=== PATIENT | female | born 1955 | race American Indian/Alaskan Native ===

== ENCOUNTER 2019-08-24 11:34 | Emergency (ER) | payer MEDICARE, OTHER ==
--- NOTE | 2019-08-24 11:45 | Event Note ---
ED Screening Note Date of service: 08/24/19 Time: 11:43 ED Screening Note: 64 y o female with PMH of Stroke last week presents with right sided head pain with with right sided weakness This initial assessment/diagnostic orders/clinical plan/treatment(s) is/are subject to change based on patients health status, clinical progression and re- assessment by fellow clinical providers in the ED. Further treatment and workup at subsequent clinical providers discretion. Patient/guardian urged not to elope from the ED as their condition may be serious if not clinically assessed and managed. Initial orders include: Taylor stroke protocol initiated
[2019-08-24] MEDS ORDERED: MORPHINE 4 MG/1 ML INJ IV ONE (12:10)
[2019-08-24] MEDS ORDERED: ACETAMINOPHEN 500 MG TAB PO ONE (12:11)
[2019-08-24] MEDS ORDERED: ONDANSETRON 4 MG/2 ML INJ IV ONE (12:11)
--- NOTE | 2019-08-24 12:18 | Cat Scan Report ---
CT BRAIN: 08/24/2019 at 1152 hours ET INDICATION / CLINICAL INFORMATION: MAIN: CODE STROKE CALL [phone] . COMPARISON: None available. FINDINGS: BRAIN/INTRACRANIAL STRUCTURES: Unenhanced CT images of the brain were obtained. There is evidence of chronic right middle cerebral artery distribution cortical ischemic change. Piano Maker karely subcortical ischemic change are present in the left frontal periventricular white matter. Chronic white matter hypoattenuation is present. There is no CT evidence of acute large vessel territory ischemic injury, hemorrhage, or mass. There a re no abnormal extra-axial fluid collections. Incidental note is made of prominent basal ganglia calcifications, generally considered to be of no c linical significance. Atherosclerotic vascular calcifications are present in the distal internal carotid arteries and verte bral arteries. EXTRACRANIAL STRUCTURES: Unremarkable. IMPRESSION: No acute abnormality. Old right MCA territory infarct. These findings were discussed with the emergency department physician at 1212 hours ET, All CT scans at this location are performed using dose reduction to ALARA by means of automated expos ure control. Signer Name: Scooter Youngblood MD Signed: 08/24/2019 12:14 PM Workstation Name: [id number]
[2019-08-24] MEDS ORDERED: ASPIRIN 81 MG TAB CHEW PO ONE (12:32)
--- NOTE | 2019-08-24 12:32 | Emergency Department Report ---
ED Neuro Deficit HPI - General Chief Complaint: Neuro Symptoms/Deficit Stated Complaint: HEADACHE Time Seen by Provider: 08/24/19 12:10 Source: patient Mode of arrival: Wheelchair Limitations: No Limitations - History of Present Illness Initial Comments: [facility] TeleStroke Metrics: LKW: 0600 Door Time: 1134 [facility] Contacted: 1148 [facility] at Bedside: 1155 NIHSS: 1203 Decision on Alteplase: Not to give as the patient had a recent stroke last week, and her last known well time is greater than 4.5 hours prior to her presentation. Interventional Candidate: Not a candidate as her symptoms are not consistent with a large vessel proximal occlusion. Chief Complaint: Right-sided headaches and left facial tingling HPI: Asked to see this patient in emergent telemedicine consultation utilizing interactive audio and video technologies. Consultation was performed with assistance of ancillary / medical staff at bedside. Verbal consent to perform the examination with telemedicine was obtained. Patient agreed to proceed with the consultation for acute stroke protocol. 64-year-old right-handed -[place] female who comes to the emergency room for evaluation of right-sided headaches and left facial tingling. Patient denies any history of migraine headaches. Patient has a history of a prior right MCA stroke with chronic left-sided weakness. Last week, she did some crack cocaine and had symptoms of stuttering speech. She was admitted to [facility]. She was admitted for 2 days. MRI brain apparently showed a new stroke. She is currently on full dose aspirin. She requested [facility] be [facility] Patient apparently woke up at 6 AM this morning, and got stressed out. She developed an 8/10 right frontal headache followed by left facial tingling. No photophobia or nausea. Patient currently reports a persistent right-sided headache. Overall, her weakness and numbness were stable on the left side from her previous stroke. PMH: Prior right MCA stroke with chronic left-sided weakness and numbness; prior lacunar strokes; hypertension; and hyperlipidemia. SOC: Positive for tobacco abuse and recent crack cocaine use. No alcohol abuse. She usually lives with family. FMH: Negative for stroke. ROS: 13 point review of systems were reviewed with the patient, and are all negative with the exception of the aforementioned in the history of present illness. VS: Temperature is 98.3 F, pulse 82, respiration 20, 137/70, oxygen saturation 99% Exam: Patient is in no apparent distress. Patient appears as stated age. No obvious acute respiratory or cardiac distress. Patient is well groomed and well-nourished. 1a- LOC: Keenly responsive - 0 1b- LOC questions: Answers both questions correctly - 0 1c- LOC commands- Performs both tasks correctly- 0 2- Gaze: Normal; no gaze paresis or gaze deviation - 0 3- Visual Leahy: normal, no Visual field deficit - 0 4- Facial movements: left facial palsy - 1 5- Upper limb motor left arm drift - 1 6- Lower limb motor - no drift - 0 7- Limb Coordination: absent ataxia - 0 8- Sensory: left sensory loss - 1 9- Language - No aphasia - 0 10- Speech - No dysarthria -0 11- Neglect / Extinction - none found - 0 NIHSS score: 3 (chronic and at her baseline) Diagnostic Data: Blood glucose 143 CT of the head showed no acute intracranial process. Medical Data Reviewed: 1.Data?reviewed include clinical labs, radiology,?and medical tests; 2.Tests?results discussed w/performing or interpreting physician; 3.Obtaining/reviewing old medical records; 4.Obtaining?case history from another source; 5.Independent?review of image, tracing, or specimen. Medical Decision Making: - Extensive number of diagnosis or management options are considered below. - Extensive amount of complex data reviewed. - High risk of complication and/or morbidity or mortality are associated with differential diagnostic considerations below. - There may be?uncertain?outcome and increased probability of prolonged functional impairment or high probability of severe prolonged functional impairment associated with some of these differential diagnosis. Assessment: 1. Right-sided headaches and left facial paresthesias 2. Recent stroke 3. Prior right MCA stroke with left-sided weakness 4. Hypertension 5. Hyperlipidemia 6. Polysubstance abuse (crack cocaine and tobacco) Recommendations: Headache work-up per ER team. If there is no improvement in the patient's symptoms, she would benefit from a MRI brain to further rule out any acute intracranial process. Continue supportive care. Thank you for allowing [facility] to participate in the care of your patient. Please call me, Dr. Calzada, with any questions at [phone]. Case discussed with the ER staff and Dr. Paz. Critical Care notation: I was called to see this critical patient emergently. I personally evaluated this critical patient for acute stroke evaluation, and determining their eligibility for IV Alteplase and interventional therapies. I have spent approximately 14 minutes with the patient, including time at bedside, time discussing the case with other physicians, reviewing plan of care, and time independently reviewing the records and scans. - Related Data Home Medications: Home Medications Medication Instructions Recorded Confirmed Last Taken Acetaminophen [Tylenol] 500 mg PO Q6HR PRN 07/30/15 07/30/15 07/29/15 Amitriptyline [Elavil] 10 mg PO QHS 07/30/15 07/30/15 07/29/15 AtorvaSTATin [Lipitor] 40 mg PO QHS 07/30/15 07/30/15 07/29/15 Baclofen 20 mg PO TID 07/30/15 07/30/15 07/29/15 Clopidogrel [Plavix] 75 mg PO QDAY 07/30/15 07/30/15 07/29/15 Losartan/Hydrochlorothiazide 1 tab PO QDAY 07/30/15 07/30/15 07/29/15 [Hyzaar 100-25 TAB] Pantoprazole [Protonix] 40 mg PO QDAY 07/30/15 07/30/15 07/29/15 hydroCHLOROthiazide [HCTZ] 25 mg PO QDAY 07/30/15 07/30/15 07/29/15 labetaloL [Normodyne TAB] 200 mg PO BID 07/30/15 07/30/15 07/29/15 traMADoL [Ultram] 50 mg PO Q4HR PRN 07/30/15 07/30/15 07/29/15 Allergies/Adverse Reactions: Allergies Allergy/AdvReac Type Severity Reaction Status Date / Time No Known Allergies Allergy Verified 08/24/19 11:36 ED Review of Systems ROS: Stated complaint: HEADACHE Other details as noted in HPI ED Past Medical Hx - Past Medical History Hx Hypertension: Yes Hx CVA: Yes (x2) Additional medical history: high cholesterol - Surgical History Additional Surgical History: hysterectomy - Social History Smoking Status: Current Every Day Smoker Substance Use Type: Cocaine - Medications Home Medications: Home Medications Medication Instructions Recorded Confirmed Last Taken Type Acetaminophen [Tylenol] 500 mg PO Q6HR PRN 07/30/15 07/30/15 07/29/15 History Amitriptyline [Elavil] 10 mg PO QHS 07/30/15 07/30/15 07/29/15 History AtorvaSTATin [Lipitor] 40 mg PO QHS 07/30/15 07/30/15 07/29/15 History Baclofen 20 mg PO TID 07/30/15 07/30/15 07/29/15 History Clopidogrel [Plavix] 75 mg PO QDAY 07/30/15 07/30/15 07/29/15 History Losartan/Hydrochlorothiazide 1 tab PO QDAY 07/30/15 07/30/15 07/29/15 History [Hyzaar 100-25 TAB] Pantoprazole [Protonix] 40 mg PO QDAY 07/30/15 07/30/15 07/29/15 History hydroCHLOROthiazide [HCTZ] 25 mg PO QDAY 07/30/15 07/30/15 07/29/15 History labetaloL [Normodyne TAB] 200 mg PO BID 07/30/15 07/30/15 07/29/15 History traMADoL [Ultram] 50 mg PO Q4HR PRN 07/30/15 07/30/15 07/29/15 History ED Neuro Physical Exam - General Limitations: No Limitations Suspected Stroke: No ED Course Vital Signs 08/24/19 11:42 Temperature 98.3 F Pulse Rate 82 Respiratory 20 Rate Blood Pressure 137/70 O2 Sat by Pulse 99 Oximetry - Lab Data Lab Results 08/24/19 Range/Units 11:57 POC Glucose 143 H (70-105) Critical care attestation.: If time is entered above; I have spent that time in minutes in the direct care of this critically ill patient, excluding procedure time. ED Disposition Clinical Impression: Headache Disposition: Z-07 PAT REG,NO TRIAGE Is pt being admited?: No Does the pt Need Aspirin: Yes Condition: Stable
[2019-08-24 12:37] LABS: Basophils # (Auto) 0.1 K/mm3 (0.0-0.1); Basophils % (Auto) 0.9 % (0.0-1.8); Eosinophils % (Auto) 0.1 % (0.0-4.3); Hematocrit 40.2 % (30.3-42.9); Hemoglobin 13.9 gm/dl (10.1-14.3); Lymphocytes # (Auto) 1.1 K/mm3 (1.2-5.4); Lymphocytes % (Auto) 8.1 % (13.4-35.0); Mean Corpuscular HGB Conc 35 % (30-34); Mean Corpuscular Volume 85 fl (79-97); Monocytes # (Auto) 0.2 K/mm3 (0.0-0.8); Monocytes % (Auto) 1.7 % (0.0-7.3); Red Blood Count 4.76 M/mm3 (3.65-5.03); Red Cell Distribution Width 15.1 % (13.2-15.2)
--- NOTE | 2019-08-24 12:44 | XRay Report ---
CHEST 1 VIEW 08/24/2019 12:18 PM INDICATION / CLINICAL INFORMATION: neuro deficit. COMPARISON: Chest x-ray on 07/30/2015 FINDINGS: SUPPORT DEVICES: None. HEART / MEDIASTINUM: Normal heart size. Atherosclerosis in the thoracic aorta. LUNGS / PLEURA: No significant pulmonary or pleural abnormality. No pneumothorax. ADDITIONAL FINDINGS: No significant additional findings. IMPRESSION: 1. No acute findings. Signer Name: Long Esparza MD Signed: 08/24/2019 12:40 PM Workstation Name: [id number]
[2019-08-24 12:46] LABS: INR 0.9 (0.87-1.13)
[2019-08-24 12:47] LABS: Partial Thromboplastin Time 25.4 Sec. (24.2-36.6)
[2019-08-24 13:00] LABS: BUN/Creatinine Ratio 25; Blood Urea Nitrogen 20 mg/dL (7-17); Calcium 8.9 mg/dL (8.4-10.2); Hemolysis Index 3
[2019-08-24 14:02] VITALS: BP 154/86
[2019-08-24 14:31] LABS: Platelet Count 426 K/mm3 (140-440)
--- NOTE | 2019-08-24 14:49 | Emergency Department Report ---
ED Headache HPI - General Chief Complaint: Neuro Symptoms/Deficit Stated Complaint: HEADACHE Time Seen by Provider: 08/24/19 12:10 Source: patient Exam Limitations: no limitations - History of Present Illness Initial Comments: Mrs. Escobedo is a 64 yo female with hx of HTN, CVA who presents with right side headache and left facial tinging. She has hx of prior CVA with residual left sided weakness. Last week she developed abnormal seepch. She was admitted to [facility]. She explained that the MRI showed new stroke. She was discharged to drug rehab program at [facility]. She had been using crack cocaine prior to the new stroke. She was stressed this morning. She felt as if she was going to be late to her group meeting. She has 8/10 sharp headache. She has not been taking aspirin which she is prescribed. No photophobia. No nausea. Gradual onset of headache. Timing/Duration: other (this morning) Quality: severe Head Injury Location: frontal Recent Head Trauma: no recent headache/trauma Modifying Factors: improves with: other (none) Associated Symptoms: denies symptoms Allergies/Adverse Reactions: Allergies No Known Allergies Allergy (Verified 08/24/19 11:36) Home Medications: Ambulatory Orders Pantoprazole [Protonix] 40 mg PO QDAY 07/30/15 hydroCHLOROthiazide [HCTZ] 25 mg PO QDAY 07/30/15 Aspirin 325 mg PO DAILY 30 Days #30 tablet 08/24/19 Prednisone 10 mg PO DAILY 08/24/19 Zoloft 25 mg PO DAILY 08/24/19 amLODIPine 10 mg PO DAILY 08/24/19 ED Review of Systems ROS: Stated complaint: HEADACHE Other details as noted in HPI Comment: All other systems reviewed and negative Constitutional: denies: fever, malaise Respiratory: denies: cough Cardiovascular: denies: chest pain Gastrointestinal: denies: abdominal pain, nausea, vomiting Neurological: headache, paresthesias ED Past Medical Hx - Past Medical History Previous Medical History?: Yes Hx Hypertension: Yes Hx CVA: Yes (x2) Additional medical history: high cholesterol - Surgical History Past Surgical History?: Yes Additional Surgical History: hysterectomy - Social History Smoking Status: Current Every Day Smoker Substance Use Type: Cocaine - Medications Home Medications: Home Medications Medication Instructions Recorded Confirmed Last Taken Type Pantoprazole [Protonix] 40 mg PO QDAY 07/30/15 08/24/1915 History hydroCHLOROthiazide [HCTZ] 25 mg PO QDAY 07/30/15 08/24/19 07/29/15 History Aspirin 325 mg PO DAILY 30 Days #30 tablet 08/24/19 Unknown Rx Prednisone 10 mg PO DAILY 08/24/19 08/24/19 Unknown History Zoloft 25 mg PO DAILY 08/24/19 08/24/19 Unknown History amLODIPine 10 mg PO DAILY 08/24/19 08/24/19 Unknown History ED Physical Exam - General Limitations: No Limitations General appearance: alert, in no apparent distress - Head Head exam: Present: atraumatic, normocephalic - Eye Eye exam: Present: normal appearance - ENT ENT exam: Present: mucous membranes moist - Neck Neck exam: Present: normal inspection, full ROM - Respiratory Respiratory exam: Present: normal lung sounds bilaterally. Absent: respiratory distress, wheezes, rales, rhonchi - Cardiovascular Cardiovascular Exam: Present: regular rate, normal rhythm, normal heart sounds. Absent: systolic murmur, diastolic murmur, rubs, gallop - GI/Abdominal GI/Abdominal exam: Present: soft. Absent: distended, tenderness, guarding, rebound - Extremities Exam Extremities exam: Present: normal inspection - Neurological Exam Neurological exam: Present: alert, oriented X3 - Expanded Neurological Exam Expanded Patient oriented to: Present: person, place, time Speech: Present: expressive aphasia Cerebellar function: Finger to Nose: Normal Upper motor neuron: Luiz Neglect: Normal Sensory exam: Upper Extremity Light Touch: Normal, Upper Extremity Pin Prick: Normal Motor strength exam: RUE: 5, LUE: 4, RLE: 5, LLE: 4 Best Eye Response ([place]): (4) open spontaneously Best Motor Response ([place]): (6) obeys commands Best Verbal Response ([place]): (5) oriented Mavis Total: 15 - Psychiatric Psychiatric exam: Present: normal affect, normal mood - Skin Skin exam: Present: warm, dry, intact, normal color. Absent: rash ED Course Vital Signs 08/24/19 08/24/19 11:42 14:01 Temperature 98.3 F Pulse Rate 82 86 Respiratory 20 16 Rate Blood Pressure 137/70 Blood Pressure 154/86 [Left] O2 Sat by Pulse 99 96 Oximetry ED Medical Decision Making - Lab Data Result diagrams: 08/24/19 12:01 08/24/19 12:01 Laboratory Results - last 24 hr 08/24/19 08/24/19 08/24/19 11:57 12:01 12:01 WBC 13.5 H RBC 4.76 Hgb 13.9 Hct 40.2 MCV 85 MCH 29 MCHC 35 H RDW 15.1 Plt Count 426 Lymph % (Auto) 8.1 L [place] % (Auto) 1.7 Eos % (Auto) 0.1 Baso % (Auto) 0.9 Lymph # 1.1 L [place] # 0.2 Eos # 0.0 Baso # 0.1 Seg Neutrophils % 89.2 H Seg Neutrophils # 12.0 H PT 12.1 L INR 0.90 APTT 25.4 Thrombin Time Sodium Potassium Chloride Carbon Dioxide Anion Gap BUN Creatinine Estimated GFR BUN/Creatinine Ratio Glucose POC Glucose 143 H Calcium Troponin T 08/24/19 08/24/19 12:01 12:01 WBC RBC Hgb Hct MCV MCH MCHC RDW Plt Count Lymph % (Auto) [place] % (Auto) Eos % (Auto) Baso % (Auto) Lymph # [place] # Eos # Baso # Seg Neutrophils % Seg Neutrophils # PT INR APTT Thrombin Time 18.3 Sodium 143 Potassium 3.4 L Chloride 106.7 Carbon Dioxide 20 L Anion Gap 20 BUN 20 H Creatinine 0.8 Estimated GFR > 60 BUN/Creatinine Ratio 25 Glucose 166 H POC Glucose Calcium 8.9 Troponin T < 0.010 - Radiology Data Radiology results: report reviewed - Medical Decision Making right sided headache left face tingling with neuro exam at baseline. No evidence of ICH. I do not suspect SAH from presentation. She appears well and comfortable. Headache improved with pain medication provided in ED. I have pr escribed ASA. dc'd to self care. She plans to return to [facility] Critical care attestation.: If time is entered above; I have spent that time in minutes in the direct care of this critically ill patient, excluding procedure time. ED Disposition Clinical Impression: Headache Disposition: DC- TO HOME OR SELFCARE Is pt being admited?: No Does the pt Need Aspirin: No Condition: Stable Instructions: Acute Headache (ED) Prescriptions: Aspirin 325 mg PO DAILY 30 Days #30 tablet
== END 2019-08-24 15:45 | disposition home or self-care (01) ==
LOC: ED 11:34
DX: R51 Headache (principal); I10 Essential (primary) hypertension; F14.10 Cocaine abuse, uncomplicated; E78.5 Hyperlipidemia, unspecified; F17.200 Nicotine dependence, unspecified, uncomplicated; Z79.82 Long term (current) use of aspirin; Z79.899 Other long term (current) drug therapy; Z90.710 Acquired absence of both cervix and uterus
CPT/HCPCS: 36415; 70450; 71045; 80048; 82962; 84484; 85025; 85610; 85670; 85730; 93005; 93010; 96374; 96375; 99285; J2270; J2405